=== PATIENT | female | born 2000 | race Caucasian/White ===

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

== ENCOUNTER 2020-12-22 18:40 | Emergency (ER) | payer OTHER ==
[~2020-12-22] VITALS: Ht 162.6 cm; Wt 125.3 kg
[~2020-12-22 18:40] MED LIST: KEFL500C17 PO; NYST1POW9 TOP
[2020-12-22 18:41] VITALS: BP 152/89
[2020-12-22] MEDS ORDERED: NAPROXEN 250 MG TAB PO ONE (22:10)
--- NOTE | 2020-12-22 23:19 | REPVR ---
PROCEDURE INFORMATION: Exam: XR Right Knee Exam date and time: 12/22/2020 10:16 PM Age: 20 years old Clinical indication: Pain; Knee; Right; Additional info: Patella subluxation, R/O FX TECHNIQUE: Imaging protocol: XR Right knee. Views: 4 or more views. COMPARISON: CR ANKLE COMPLETE 09/05/2018 10:04 AM FINDINGS: Bones/joints: Joint spaces are normal. No fracture or malalignment. Soft tissues: Unremarkable. IMPRESSION: No fracture or malalignment. Electronically signed by: Anjel Cortés On 12/22/2020 23:19:11 PM
[2020-12-22] MEDS ORDERED: CRUTMIS25 XX (23:25)
[2020-12-22] MEDS ORDERED: NAPR-885 PO (23:25)
== END 2020-12-23 00:01 | disposition home or self-care (01) ==
LOC: M ED 18:40
DX: S83.001A Unspecified subluxation of right patella, initial encounter (principal); X50.0XXA Overexertion from strenuous movement or load, initial encounter; Y92.009 Unspecified place in unspecified non-institutional (private) residence as the place of occurrence of the external cause; Y93.9 Activity, unspecified; Y99.9 Unspecified external cause status

== ENCOUNTER 2021-10-21 13:16 | Emergency (ER) | payer OTHER ==
[~2021-10-21] VITALS: Ht 162.6 cm; Wt 122.0 kg
[~2021-10-21 13:16] MED LIST changes: +CRUTMIS25 XX; +NAPR-885 PO
[2021-10-21 15:47] VITALS: BP 134/83
== END 2021-10-21 16:00 | disposition home or self-care (01) ==
LOC: M ED 13:16
DX: M25.561 Pain in right knee (principal); W19.XXXA Unspecified fall, initial encounter; Y92.9 Unspecified place or not applicable; Y93.9 Activity, unspecified; Y99.0 Civilian activity done for income or pay

== ENCOUNTER → 2022-01-01 | Outpatient (REF) | LOC: M EMP 10:29 | PROVIDERS: ATTEND Family Medicine | DX: Z20.828 Contact with and (suspected) exposure to other viral communicable diseases (principal); Z11.59 Encounter for screening for other viral diseases ==

== ENCOUNTER → 2023-04-07 | Outpatient (REF) | LOC: M EMP 15:54 | PROVIDERS: ATTEND Family Medicine | DX: Z11.52 Encounter for screening for COVID-19 (principal) ==

== ENCOUNTER → 2023-09-16 | Outpatient (REF) | LOC: M EMP 07:53 | PROVIDERS: ATTEND Family Medicine | DX: Z11.52 Encounter for screening for COVID-19 (principal) ==